=== PATIENT | female | born 1970 | race Caucasian/White ===

== ENCOUNTER 2017-09-02 22:17 | Inpatient (IN) | payer BC ==
[~2017-09-02] VITALS: Ht 162.6 cm; Wt 70.0 kg
--- NOTE | ~2017-09-02 | HEMODYNAMI ---
PATIENT:IZZY CARTER MEDICAL RECORD: [id number] : [birth year] LOCATION:[facility] ADMISSION DATE: 09/02/17 Generatedon:09/02/201723:00 Patient name: IZZY CARTER Patient #: [id number] SSN: : 1970 Date of study: Page: Of Hemodynamic Procedure Report Patient Data Patient Demographics First Name: IZZY Gender: Female Last Name: EMMA : 1970 Patient #: [id number] Age: 47 year(s) Race: Unknown Additional ID: [id number] Contact details Address: UNKNOWN State: [place] City: [facility] Zip code: [address] Admission Admission Data Admission Date: 09/02/2017 Admission Time: 22:17 Admit Source: Emergency department Procedure Procedure Types Cath Procedure Diagnostic Procedure LHC LHC w/Coronaries Miscellaneous Procedures Moderate Sedation up to 15 minutes Procedure Description Procedure Staff Name Function Norberto Thompson MD Performing Physician Joanna Suresh RT Monitor Sherri Hayes RT Scrub Wang Qureshi RN Nurse Hemodynamics Rest Pre Cath Intra NCS Post Cath Procedure Log Time Note 22:52:27 Admit Source: Emergency department 22:52:37 Diagnostic Cath status Emergency 22:52:40 Wang Qureshi RN sent for patient. Start room use. 22:52:42 Time tracking: Regular hours 22:52:47 Plan of Care:Hemodynamics will remain stable., Cardiac rhythm will remain stable., Comfort level will be maintained., Respiratory function will remain adequate., Patient/ family verbilizes understanding of procedure., Procedure tolerated without complication., Recovers from procedure without complications.. 23:00:[address] Thompson Signature Audit [place] Stage Time Signature Unsigned Intra-Procedure 09/02/2017 Sherri Hayes 11:00:25 PM RT(R) Signatures Monitor : Joanna Suresh RT Signature : Date : Time : [address] [place] [address]
[2017-09-02 23:36] LABS: WBC 33.5 10x3/uL (4.8-10.8)
[2017-09-02 23:37] LABS: HEMATOCRIT 39.3 % (36.0-48.0); HEMOGLOBIN 12.5 g/dL (12-16); MCH 31.8 pg (26.0-34.0); MCHC 31.8 g/dL (31.0-37.0); MEAN PLATELET VOLUME 12.3 fL (7.4-10.4); PLATELET COUNT 300 10x3/uL (130-400); RBC 3.93 10x6/uL (4.00-5.40); RDW 12.2 % (11.5-14.5)
[2017-09-02 23:49] LABS: APTT 26.7 SECONDS (22.8-39.4); INR 1.18 (0.85-1.17); PROTIME 14.6 SECONDS (11.6-15.0)
[2017-09-03] VITALS (33 sets, daily range): BP systolic 95–144; BP diastolic 51–81; Ht 162.6 cm; Wt 70.0 kg
[2017-09-03 00:13] LABS: ALBUMIN 3.4 g/dL (3.4-5.0); ALKALINE PHOSPHATASE 98 U/L (46-116); ALT (SGPT) 39 U/L (10-68); BILIRUBIN - TOTAL 0.44 mg/dL (0.2-1.3); CALCIUM 8.6 mg/dL (8.5-10.1); CHLORIDE - SERUM 90 mmol/L (98-107); CKMB 1.3 U/L (0.0-3.6); CREATINE KINASE 87 UL (21-215); CREATININE - SERUM 2.8 mg/dL (0.6-1.3); POTASSIUM - SERUM 5.9 mmol/L (3.5-5.1); SODIUM 129 mmol/L (136-145); UREA NITROGEN 62 mg/dL (7-18); eGFR NON AFRICAN AMERICAN 19 mL/min (90-120)
[2017-09-03 00:16] LABS: CALC OSMOLALITY 316 mosm/kg (275-300)
[2017-09-03 00:17] LABS: TROPONIN-I 0.078 ng/mL (0.000-0.060)
[2017-09-03 00:18] LABS: CARBON DIOXIDE 8.1 mmol/L (21.0-32.0); GLUCOSE 813 mg/dL (74-106)
[2017-09-03 00:31] LABS: LYMPHOCYTES 14 % (15-50); MONOCYTES 1 % (2-11); NEUTROPHILS 85 % (40-80); PLATELET ESTIMATE NORMAL
[2017-09-03 01:19] LABS: APPEARANCE HAZY (CLEAR); BILIRUBIN NEGATIVE (NEGATIVE); COLOR YELLOW (YELLOW); GLUCOSE 1000 mg/dL (NEGATIVE); KETONE MODERATE mg/dL (NEGATIVE); NITRITE NEGATIVE (NEGATIVE); PROTEIN 1+ mg/dL (NEGATIVE); UROBILINOGEN NORMAL (NORMAL)
[2017-09-03 01:20] LABS: AMORPHOUS SEDIMENT <1+ /lpf (NONE SEEN); BACTERIA FEW /hpf (NONE SEEN); EPITHELIAL CELLS 0-5 /hpf (0-5); RED CELLS - URINE 0-5 /hpf (0-5); WHITE CELLS - URINE 0-5 /hpf (0-5)
[2017-09-03 01:23] LABS: UDS - AMPHET NEGATIVE QUAL (NEGATIVE); UDS - BARB NEGATIVE QUAL (NEGATIVE); UDS - BENZO NEGATIVE QUAL (NEGATIVE); UDS - COCAINE NEGATIVE QUAL (NEGATIVE); UDS - OPIATE NEGATIVE QUAL (NEGATIVE); UDS - PCP NEGATIVE QUAL (NEGATIVE); UDS - THC NEGATIVE QUAL (NEGATIVE)
--- NOTE | 2017-09-03 03:13 | NUR ---
REC'D TO 2300 VIA STRETCHER FROM ER. ICU MONITORS ESTABLISHED. PT OBTUNDED, RESPONDS BRIEFLY TO DEEP STIMULI BY WITHDRWING AND OPENING EYES ONLY. DOES VALERIE WEAKLY, NOT TO COMMAND.IVF AND INSULIN GTT INFUSING TO R HAND PIV, NO REDNESS OR SWELLING AT SITE - LAB RESULTS PENDING FROM ER. TEMP 94.5 AX - WARMED BLANKETS PROVIDED.
[2017-09-03] MEDS ORDERED: RESTORIL15 MG PO (03:27)
[2017-09-03] MEDS ORDERED: BAYER CHEWABLE81 MG PO (03:28)
[2017-09-03] MEDS ORDERED: PLAVIX75 MG PO (03:28)
[2017-09-03] MEDS ORDERED: PRAVACHOL20 MG PO (03:28)
[2017-09-03] MEDS ORDERED: LEVOXYL100 MCG PO (03:29)
[2017-09-03] MEDS ORDERED: HUMALOG 30100 UNITS/ SC (03:29)
[2017-09-03] MEDS ORDERED: LANTUS INSULIN10 ML SC (03:30)
[2017-09-03] MEDS ORDERED: K-TAB10 MEQ (03:30)
[2017-09-03] MEDS ORDERED: LASIX20 MG (03:30)
[2017-09-03 03:31] LABS: HEMOGLOBIN A1C 10.6 % (4.8-6.0)
[2017-09-03 03:33] LABS: CHLORIDE - SERUM 95 mmol/L (98-107); CKMB 3.3 U/L (0.0-3.6); CREATINE KINASE 119 UL (21-215); MAGNESIUM - SERUM 2.5 mg/dL (1.8-2.4); PHOSPHOROUS 8.1 mg/dL (2.5-4.9); SODIUM 134 mmol/L (136-145); UREA NITROGEN 62 mg/dL (7-18); eGFR NON AFRICAN AMERICAN 18 mL/min (90-120)
[2017-09-03 03:34] LABS: CALC OSMOLALITY 320 mosm/kg (275-300); CARBON DIOXIDE 14.6 mmol/L (21.0-32.0); POTASSIUM - SERUM 4.2 mmol/L (3.5-5.1); TROPONIN-I 0.154 ng/mL (0.000-0.060)
[2017-09-03 03:35] LABS: GLUCOSE 736 mg/dL (74-106)
--- NOTE | 2017-09-03 03:56 | NUR ---
DR. POLK AT FOR TRIALYSIS PLACEMENT. CONSENT SIGNED BY FAMILY.
--- NOTE | 2017-09-03 04:17 | NUR ---
UPDATE GIVEN TO DR. POLK, NEW ORDERS RECIEVED,
--- NOTE | 2017-09-03 04:32 | NUR ---
FAMILY AT BS, UPDATE GIVEN AND QUESTIONS ANSWERED. SEE ADMISSION ASSESSMENT AND HISTORY.
--- NOTE | 2017-09-03 05:00 | NUR ---
Sherly MONTEIRO RE: ABG RESULTS.
--- NOTE | 2017-09-03 05:52 | NUR ---
FAMILY AT , FSBS 591, INSULIN GTT TO 26.5 UN/HR PER PROTOCOL. AM LABS PENDING - WILL Sherly SEWELL REPAGED WITH NO RETURN CALL YET. VSS . NO SIGN OF DISTRESS.
--- NOTE | 2017-09-03 05:54 | NUR ---
FAMILY STATES " DR. BUTTS IN [place] IS HER PRIMARY - WILL NEED TO GET RECORDS", ALSO SISTERS REQUEST DR. POLK BLOWER INSTALLER HERE.
[2017-09-03 06:07] LABS: ANION GAP 24.2 mmol/L (8-16); CALCIUM 7.9 mg/dL (8.5-10.1); CARBON DIOXIDE 17.1 mmol/L (21.0-32.0); CREATININE - SERUM 2.8 mg/dL (0.6-1.3)
[2017-09-03 06:14] LABS: POTASSIUM - SERUM 3.3 mmol/L (3.5-5.1)
[2017-09-03 06:27] LABS: WBC 22.3 10x3/uL (4.8-10.8)
[2017-09-03 06:28] LABS: BASOPHILS 0 % (0-2); EOSINOPHILS 0 % (0-7); IMMATURE GRANULOCYTES 0.8 % (0-5); LYMPHOCYTES 4.6 % (15-50); MCH 31.5 pg (26.0-34.0); MCHC 33.3 g/dL (31.0-37.0); MCV 94.6 fL (80.0-100.0); MEAN PLATELET VOLUME 11.5 fL (7.4-10.4); MONOCYTES 3.9 % (2-11); NEUTROPHILS 90.7 % (40-80); PLATELET COUNT 232 10x3/uL (130-400); RBC 3.49 10x6/uL (4.00-5.40)
--- NOTE | 2017-09-03 06:34 | NUR ---
Sherly SEWELL NOTIFIED OF AM LABS, INSULIN GTT AND STATUS REPORT GIVEN. NEW ORDERS REC'D TO CONSULT PULMONARY AND RENAL PHYSICIANS.
--- NOTE | 2017-09-03 06:50 | NUR ---
DR. CHRISTEN MONTEIRO.
--- NOTE | 2017-09-03 07:03 | NUR ---
DR. VELÁSQUEZ NOTIFIED OF CONSULT, LABS AND STATUS REPORT GIVEN. NEW ORDER FOR KCL REPLACEMENT PROTOCOL.
--- NOTE | 2017-09-03 07:59 | NUR ---
DR LYNN HERE AND SHE SPOKE TO FAMILY AT BS. BS 504 MULTIPLIER USED, INSULTN GTT INCREASED TO 31.0
[2017-09-03 09:15] LABS: CALC OSMOLALITY 312 mosm/kg (275-300); CALCIUM 8.4 mg/dL (8.5-10.1); CARBON DIOXIDE 21.4 mmol/L (21.0-32.0); CHLORIDE - SERUM 104 mmol/L (98-107); CREATINE KINASE 420 UL (21-215); CREATININE - SERUM 2.4 mg/dL (0.6-1.3); MAGNESIUM - SERUM 1.9 mg/dL (1.8-2.4); POTASSIUM - SERUM 3.2 mmol/L (3.5-5.1); SODIUM 140 mmol/L (136-145); THYROID STIMULATING HORMONE 0.19 uIU/mL (0.36-3.74); TROPONIN-I 0.756 ng/mL (0.000-0.060); UREA NITROGEN 52 mg/dL (7-18); eGFR NON AFRICAN AMERICAN 23 mL/min (90-120)
[2017-09-03 09:16] LABS: GLUCOSE 467 mg/dL (74-106)
[2017-09-03 10:48] LABS: CREATININE - URINE 39.4 mg/dL (30-125); PROTEIN - URINE 40.2 mg/dL (0.0-11.9)
--- NOTE | 2017-09-03 10:49 | NUR ---
PT IS RESPONDING BETTER, FOLLOWING COMMAND, SQUEEZE THIS RNS FINGERS ON COMMAND. STILL OBTUNDED. CT ABD DONE.
--- NOTE | 2017-09-03 15:33 | NUR ---
FSBS 149. INSULIN GTT OFF, REPORTED TO DR LYNN AND REC'D ORDERS TO START SSI AND TO DC INSULIN GTT. OS LLE TAKEN OUT BY ER STAFF.
[2017-09-03 16:22] LABS: CALCIUM 7.8 mg/dL (8.5-10.1); CHLORIDE - SERUM 111 mmol/L (98-107); CKMB 26.7 U/L (0.0-3.6); MAGNESIUM - SERUM 1.8 mg/dL (1.8-2.4); POTASSIUM - SERUM 3.1 mmol/L (3.5-5.1); SODIUM 145 mmol/L (136-145); UREA NITROGEN 41 mg/dL (7-18)
[2017-09-03 16:23] LABS: CALC OSMOLALITY 298 mosm/kg (275-300); CREATINE KINASE 1049 UL (21-215); CREATININE - SERUM 1.7 mg/dL (0.6-1.3); GLUCOSE 93 mg/dL (74-106); eGFR NON AFRICAN AMERICAN 34 mL/min (90-120)
[2017-09-03 16:24] LABS: TROPONIN-I 1.822 ng/mL (0.000-0.060)
--- NOTE | 2017-09-03 16:40 | NUR ---
CALLED ELEVATED TROPONION TO DR JERRY, NONEW ORDERS AT PRESENT. CALLED ELEVATED CL AND BS [address]YNN, REC'D NEW ORDERS TO CHANGE NS TO D5NS
--- NOTE | 2017-09-03 19:10 | NUR ---
REPORT RECIEVED. ASSESSMENT COMPLETE PER FLOW SHEET. VSS DENIES NEEDS. WILL CONTINUE TO MONITOR
--- NOTE | 2017-09-03 20:50 | NUR ---
FAMILY AT BEDSIDE. GIVEN UPDATE.
[2017-09-03 21:46] LABS: CALCIUM 8.2 mg/dL (8.5-10.1); CARBON DIOXIDE 19.9 mmol/L (21.0-32.0); CREATININE - SERUM 1.6 mg/dL (0.6-1.3); MAGNESIUM - SERUM 1.8 mg/dL (1.8-2.4)
[2017-09-03 21:56] LABS: POTASSIUM - SERUM 4.9 mmol/L (3.5-5.1)
--- NOTE | 2017-09-03 23:39 | NUR ---
REASSESSMENT COMPLETEPER FLOW SHEET. VSS NO NEW CHANGES WILL CONTINUE TO MONTIOR
[2017-09-04] VITALS (22 sets, daily range): BP systolic 137–180; BP diastolic 63–98
--- NOTE | 2017-09-04 01:01 | NUR ---
PT SLEPEING COMFORTABLY WILL CONTINUE TO MONITOR
--- NOTE | 2017-09-04 03:27 | NUR ---
REASSESSMENT COMPLETE PER FLOW SHEET. VSS NO NEW CHANGES WILL CONTINUE TO MONITOR
[2017-09-04 05:11] LABS: CKMB 17.4 U/L (0.0-3.6); CREATINE KINASE 1252 UL (21-215); PHOSPHOROUS 1.9 mg/dL (2.5-4.9); TROPONIN-I 2.055 ng/mL (0.000-0.060)
[2017-09-04 05:14] LABS: ERYTHROCYTE SEDIMENTATION RATE 26 mm/hr (0-20)
[2017-09-04 07:02] LABS: ALBUMIN 2.9 g/dL (3.4-5.0); ANION GAP 16.6 mmol/L (8-16); BILIRUBIN - TOTAL 0.26 mg/dL (0.2-1.3); CALCIUM 8.6 mg/dL (8.5-10.1); CARBON DIOXIDE 22.6 mmol/L (21.0-32.0); CREATININE - SERUM 1.4 mg/dL (0.6-1.3); POTASSIUM - SERUM 4.2 mmol/L (3.5-5.1)
--- NOTE | 2017-09-04 08:39 | NUR ---
AWAKES EASILY TO VERBAL STIMULI SKIN WARM AND DRY. RIJ DRESSING DRY AND INTACT D5NS AT 100 ML HOUR. DOES C/O ABD TENDERNESS ON PALPATATION. STATES HER BACK IS HURTING HER FROM LAYING IN THE BED TOO LONG. OFFERED TO GET HER UP IN CHAIR AT BEDSIDE, REFUSED. REPOSITIONED ON LEFT SIDE FOR COMFORT. NOT WANTING TO MOVE HER SELF IN BED. NEEDS ENCOURAGEMENT. SISTERS AT BEDSIDE QUESTIONS ANSWERED. ABD SOFT WITH BOWEL SOUNDS PRESENTS. DENIES ANY NAUSEA. INSULIN GTT TURNED OFF.
--- NOTE | 2017-09-04 11:42 | NUR ---
DR CHRISTEN VALDOVINOS FOR PATIENT TO TRANSFER TO FLOOR
[2017-09-04 13:22] LABS: BASOPHILS 0 % (0-2); EOSINOPHILS 0 % (0-7); HEMATOCRIT 30.9 % (36.0-48.0); HEMOGLOBIN 10.6 g/dL (12-16); IMMATURE GRANULOCYTES 0.3 % (0-5); LYMPHOCYTES 4.6 % (15-50); MCH 32.1 pg (26.0-34.0); MCHC 34.3 g/dL (31.0-37.0); MCV 93.6 fL (80.0-100.0); MEAN PLATELET VOLUME 11.1 fL (7.4-10.4); MONOCYTES 4.4 % (2-11); NEUTROPHILS 90.7 % (40-80); PLATELET COUNT 161 10x3/uL (130-400); RDW 12.5 % (11.5-14.5); WBC 23.8 10x3/uL (4.8-10.8)
[2017-09-04] MEDS ORDERED: K-DUR20 MEQ PO (13:39)
[2017-09-04] MEDS ORDERED: NORMODYNE / TR200 MG PO (13:39)
[2017-09-04] MEDS ORDERED: COZAAR50 MG PO (13:40)
[2017-09-04] MEDS ORDERED: LOZOL 2.5 MG T2.5 MG PO (13:42)
[2017-09-04] MEDS ORDERED: TIROSINT88 MCG PO (13:43)
[2017-09-04] MEDS ORDERED: LASIX40 MG (13:48)
--- NOTE | 2017-09-04 13:48 | NUR ---
[facility] IN [place] CALLED [phone] AND UPDATED MED LIST RECEIVED. STATES PATIENT REFILLED MEDS ON Saturday09/02/17
--- NOTE | 2017-09-04 17:54 | NUR ---
UP IN CHAIR STOOD AND WALKED WITH MINIMAL ASSISTANCES. MORE ALERT THIS AFTERNOON. POOR APPETITE FEW SIPS OF CHICKEN BROTH AND PUDDING. DRINKING PLENTY OF FLUIDS. NAPPING AT INTERVALS. NS INFUSING AT 50 ML HOUR PER RIGHT IJ TRIALYSIS NO DRAINAGE OR REDNESS AT SITE. JARAMILLO CATH PATENT DRAINING CLEAR YELLOW URINE. MONITOR SR. DOES HAVE SOME CHEST PAIN FROM HAVING CPR DONE AND SOME BACK DISCOMFORT TURNING SELF FROM SIDE TO SIDE. FAMILY HERE QUESTIONS ANSWERED
--- NOTE | 2017-09-04 19:29 | NUR ---
REPORT RECIEVED. ASSESSMENT COMPLETE PER FLOW SHEET. VSS. BS 119 NO INSULIN PER PROTOCOL. DENIES NEEDS WILL CONTINUE TO MONITOR
--- NOTE | 2017-09-04 23:30 | NUR ---
REASSESSMENT COMPLETE PER FLOW SHEET. VSS. NO NEW CHANGES WILL CONTINUE TO MONITOR
[2017-09-05] VITALS (15 sets, daily range): BP systolic 126–167; BP diastolic 65–100
--- NOTE | 2017-09-05 01:10 | NUR ---
PT SLEEPING COMFORTABLY. VSS NO NEW CHANGES WILL CONTINUE TO MONITOR
--- NOTE | 2017-09-05 05:20 | NUR ---
FAMILY AT BEDSIDE. GIVEN UDPATE. NO NEW CHANGES
[2017-09-05 06:09] LABS: % SATURATION 37 % (15-55); IRON 70 ug/dl (35-150); TOTAL IRON BIND CAPACITY 186 ug/dl (260-445); UNSAT IRON BIND CAPACITY 116 ug/dl (150-375)
[2017-09-05 06:13] LABS: BASOPHILS 0.1 % (0-2); EOSINOPHILS 0.2 % (0-7); HEMOGLOBIN 9.9 g/dL (12-16); IMMATURE GRANULOCYTES 0.3 % (0-5); MCH 31.9 pg (26.0-34.0); MCHC 34.1 g/dL (31.0-37.0); MCV 93.5 fL (80.0-100.0); MEAN PLATELET VOLUME 11.5 fL (7.4-10.4); MONOCYTES 5.3 % (2-11); NEUTROPHILS 82.1 % (40-80); PLATELET COUNT 138 10x3/uL (130-400); RDW 12.4 % (11.5-14.5)
--- NOTE | 2017-09-05 06:20 | NUR ---
[facility] PAGED PT BP 165/95 WILL CONTINUE TO MONITOR
[2017-09-05 06:29] LABS: ALBUMIN 2.6 g/dL (3.4-5.0); BILIRUBIN - TOTAL 0.68 mg/dL (0.2-1.3); CALCIUM 7.9 mg/dL (8.5-10.1); CARBON DIOXIDE 25.3 mmol/L (21.0-32.0); PROTEIN - SERUM 5.8 g/dL (6.4-8.2)
[2017-09-05 06:37] LABS: ANION GAP 16.1 mmol/L (8-16); CREATININE - SERUM 0.9 mg/dL (0.6-1.3); POTASSIUM - SERUM 3.4 mmol/L (3.5-5.1)
--- NOTE | 2017-09-05 07:23 | NUR ---
Nutrition follow-up: Pt receiving clear liquids; to advance to consistent CHO as pt can tolerate Labs reviewed Wt: 154# +BM RDN will monitor patients diet advancement, diet tolerance and pts progress.
--- NOTE | 2017-09-05 10:03 | NUR ---
PT OOB TO CHAIR THIS AM. VSS. AFEBRILE.
--- NOTE | 2017-09-05 11:15 | NUR ---
DR LYNN HERE, BP ELEVATED, VASOTED GIVEN.
[2017-09-05 12:05] LABS: MAGNESIUM - SERUM 1.6 mg/dL (1.8-2.4)
[2017-09-05 12:08] LABS: PHOSPHOROUS 2.6 mg/dL (2.5-4.9)
--- NOTE | 2017-09-05 19:07 | NUR ---
REPORT MONROE TO NURSING STAFF ON MED SURG. WILL TRANSFER TO ROOM 2215.
--- NOTE | 2017-09-05 19:30 | NUR ---
RECEIVED TO FLOOR FROM ICU, ORIENTED TO ROOM, NO DISTRESS NOTED, CLINT PATINO PER DR LYNN'S ORDER, UP TO BATHROOM AND SINK TO BRUSH TEETH, DENIES NEEDS, WILL CONTINUE TO MONITOR
[2017-09-06 04:00] VITALS: BP 147/86
--- NOTE | 2017-09-06 04:15 | NUR ---
BLOOD GLUCOSE 39, RECHECKED 36, AMP D50 GIVEN PER PROTOCOL, PT STATES SHE FEELS FINE, JUST REALLY TIRED, WILL RECHECK IN 30 MIN
--- NOTE | 2017-09-06 04:30 | NUR ---
PT FSBS CRITICAL LOW 36. TYPE ROLLING MACHINE OPERATOR ADMINISTERING D5O IV PUSH. PT IS ASYMPTOMATIC. NO DISTRESS NOTED. TYPE ROLLING MACHINE OPERATOR MONITORING CLOSELY. CONTINUE TYPE ROLLING MACHINE OPERATOR'S PLAN OF CARE.
--- NOTE | 2017-09-06 05:00 | NUR ---
BLOOD GLUCOSE CAME UP TO 136, PT STATES SHE FEELING BETTER
[2017-09-06 06:19] LABS: BASOPHILS 0.1 % (0-2); EOSINOPHILS 4.7 % (0-7); HEMATOCRIT 31.6 % (36.0-48.0); HEMOGLOBIN 10.7 g/dL (12-16); IMMATURE GRANULOCYTES 0.2 % (0-5); LYMPHOCYTES 14.9 % (15-50); MCH 31.8 pg (26.0-34.0); MCHC 33.9 g/dL (31.0-37.0); MCV 93.8 fL (80.0-100.0); MEAN PLATELET VOLUME 10.9 fL (7.4-10.4); MONOCYTES 8.5 % (2-11); NEUTROPHILS 71.6 % (40-80); PLATELET COUNT 126 10x3/uL (130-400); RBC 3.37 10x6/uL (4.00-5.40); RDW 11.8 % (11.5-14.5)
[2017-09-06 06:20] LABS: WBC 9.1 10x3/uL (4.8-10.8)
[2017-09-06 06:32] LABS: ALBUMIN 2.6 g/dL (3.4-5.0); BILIRUBIN - TOTAL 0.47 mg/dL (0.2-1.3); CALCIUM 8.2 mg/dL (8.5-10.1); POTASSIUM - SERUM 3.1 mmol/L (3.5-5.1)
[2017-09-06 06:34] LABS: ANION GAP 9.7 mmol/L (8-16); CARBON DIOXIDE 33.4 mmol/L (21.0-32.0)
--- NOTE | 2017-09-06 07:20 | NUR ---
REPORT RECEIVED FROM MOTOR POWER CONNECTOR NURSE. CALL LIGHT IN REACH.
[2017-09-06 08:10] VITALS: BP 149/78; BP 154/77
[2017-09-06 09:17] LABS: SPE - A/G RATIO 1.2 (0.7-1.7); SPE - ALBUMIN 2.7 g/dL (2.9-4.4); SPE - ALPHA-1 GLOBULIN 0.2 g/dL (0.0-0.4); SPE - ALPHA-2 GLOBULIN 0.7 g/dL (0.4-1.0); SPE - BETA GLOBULIN 0.6 g/dL (0.7-1.3); SPE - GAMMA GLOBULIN 0.7 g/dL (0.4-1.8); SPE - M-SPIKE Not Observed g/dL (Not Observed)
--- NOTE | 2017-09-06 09:30 | NUR ---
ASSESSMENT COMPLETED. CALL LIGHT IN REACH. WILL CONTINUE WITH PLAN OF CARE.
--- NOTE | 2017-09-06 10:22 | NUR ---
AM MEDS ADMINISTERED. FSBS 233. 12 UNITS REGULAR INSULIN SUBQ TO LLQ. CALL LIGHT IN REACH. WILL CONTINUE WITH PLAN OF CARE.
--- NOTE | 2017-09-06 10:26 | NUR ---
AFTER TYPING A NOTE, I TURNED AROUND AND PATIENT STATED THAT SHE PUSHED THE ABX THRU HERSELF. EXPLAINED TO HER THAT SHE CANNOT DO THAT AND IT HAS TO BE PUSHED OVER A CERTAIN AMOUNT OF TIME AND SHE SHOULD NEVER PUSH ANYTHING AND SHOULD ALLOW THE NURSE TO. VERBALIZED UNDERSTANDING.
--- NOTE | 2017-09-06 12:50 | NUR ---
EATING LUNCH AT THIS TIME. NO NEEDS VOICED AT THIS TIME. FAMILY MEMBER IN ROOM.
--- NOTE | 2017-09-06 13:13 | NUR ---
Patient Name: IZZY CARTER Admission Status: ER Accout number: [id number] Admission Date: 09-03-2017 : 1970 Admission Diagnosis: Attending: KYLIE LYNN Current LOS: 3 Anticipated DC Date: 09-06-2017 Planned Disposition: Home Primary Insurance: [employer] Discharge Planning Comments: CM MET WITH PATIENT REGARDING D/C NEEDS AND PLANS. PATIENT STATED SHE LIVES WITH HER BOYFRIEND AND THEY HAVE ABOUT 5 STEPS W/RAILS TO ENTER HOME AND NO STAIRS INSIDE. PATIENTS FRIEND (TIGIST) OR BOYFRIEND WILL DRIVE HER HOME AT DISCHARGE. PATIENT STATED SHE IS INDEPENDENT WITH HER CARE AND HAS A GLUCOMETER AT HOME. PATIENT STATED SHE NEVER CHECKS HER BLOOD SUGARS BUT WILL START. CM ASKED IF HOME HEALTH COULD SEE HER FOR DIABETES TEACHING. PATIENT STATED SHE DID NOT NEED HOME HEALTH. PATIENTS PCP IS DR. EDWARDS AND USES [facility] [place]. CM WILL CONTINUE TO FOLLOW PATIENT WITH D/C NEEDS AND PLANS. PCP DR. JERRY [facility] [phone] TIGIST (FRIEND) [phone] Loom Inspector: Dariela Holloway Is the patient Alert and Oriented? Yes 0 * PCP DR. EDWARDS 0 * Pharmacy [facility] IN [place] 0 * Preadmission Environment Home with Family 0 * ADLs Independent 0 * Equipment Glucometer 0 * List name and contact numbers for known caregivers / representatives who currently or will assist patient after discharge: TIGIST MAST (FRIEND) [phone] * Community resources currently utilized None 0 * Additional services required to return to the preadmission environment? Yes 0 * Can the patient safely return to the preadmission environment? Yes 0 * Has this patient been hospitalized within the prior 30 days at any hospital? No 0 Grand Total: 0
--- NOTE | 2017-09-06 14:50 | NUR ---
CALLED ICU NURSE TO SEE IF ONE OF THEM CAN TAKE OUT THE TRIALYSIS CATHETER.
--- NOTE | 2017-09-06 15:30 | NUR ---
TRIALYSIS CATHETER REMOVED ORDERED-3 SUTURES CUT-BETADINE OINT APPLIED TO SITE-PT INSTRUCTED TO TAKE DEEP BREATH AND HOLD-CATHETER REMOVED INTACT-PT RELEASED BREATH -BREATHING NORMALLY-PRESSURE APPLIED FOR 7MIN-HEMOSTASIS OBTAINED-GAUZE AND OPSITE APPLIED-DIRECTED TO REMOVE IN 24H AT HOME-PROVIDED WITH 2 SMALL PACKET BETADINE OINT-DIRECTED IF NOT HEALED OVER-APPLY BETADINE OINT AND GAUZE DRG-REPEAT Q 24H NECESSARY-[place]
--- NOTE | 2017-09-06 16:20 | NUR ---
IV TO RIGHT HAND DC'D WITH TIP INTACT.
--- NOTE | 2017-09-06 17:12 | NUR ---
DC INSTRUCTIONS EXPLAINED TO PATIENT. DC'D TO VEHICLE. REFUSED WC.
--- NOTE | 2017-09-10 12:15 | CN ---
PATIENT NAME:IZZY CARTER MEDICAL RECORD: [id number] : [birth year] LOCATION:[facility] ADMIT DATE: 09/03/17 ACCOUNT: [id number] CONSULTING PHYSICIAN: JAMAL JERRY MD REFERRING PHYSICIAN: KYLIE LYNN MD DATE OF CONSULTATION: 09/02/2017 DIAGNOSES: 1. Diabetic ketoacidosis. 2. Acidosis. 3. Type 1 diabetes. 4. Abnormal ECG. HISTORY OF PRESENT ILLNESS: Mrs. Carter'david details of what went on at the house are very questionable and very sketchy. Supposedly the patient got into some sort of distress. EMS was called, people that were armed met EMS. The EMS did not go into the house, they were waiting for police. The patient finally arrested in the house. The details of the arrest are actually very incomplete as well, supposedly no medications were given. She was at one time in asystole, possibly in PEA. CPR was performed. The patient then pulled out of it, was breathing on her own. She is unresponsive here. Initially her EKG looked like an acute anterior myocardial infarction with treatment of the acidosis; however, the EKG is with narrow complex and no further ST elevation. Currently, she is on no pressors. She is sinus tachycardia at 113. Systolic blood pressure greater than 100. PHYSICAL EXAMINATION: GENERAL APPEARANCE: Well-nourished, well-developed, appears stated age. Level of distress, comfortable. PSYCHIATRIC: Mental status, alert, normal affect. Orientation, oriented to time, place and person. EYES: Lids and conjunctiva, noninjected. No discharge, no pallor. ENT: Lips, teeth, gums, normal dentition. Oropharynx, no cyanosis, no pallor. NECK: Carotid arteries, bilateral normal upstroke, no bruits, no thrills. JUGULAR VEINS: No jugular venous pressure or distention. CERVICAL LYMPH NODES: Nontender, nonenlarged. THYROID: Not enlarged. Nontender. No nodules. LUNGS: Respiratory effort, unlabored. CHEST: Normal curvature. No thoracic deformity. No chest wall tenderness. Percussion, resonant. Auscultation, clear. No wheezes, no rales, no rhonchi. CARDIOVASCULAR: Precordial exam, nondisplaced. No heaves or pericardial thrills. Rate and rhythm, regular. Heart sounds, normal S1, normal S2. No S3, no gallop, no rub. Systolic murmur, not heard. Diastolic murmur, not heard. EXTREMITIES: No cyanosis, no edema. Peripheral pulses, full and equal in all extremities, except as noted. No bruits appreciated. ABDOMEN: Soft, nondistended. Normal aorta. No bruit. Nontender. No masses. Liver, nontender, no hepatomegaly. Spleen, nontender, no splenomegaly. MUSCULOSKELETAL: No joint tenderness. No joint swelling. No erythema. NEUROLOGICAL: Normal gait, normal strength, normal tone. SKIN: Warm and dry. OVERALL IMPRESSION: EKG abnormalities secondary to electrolyte abnormalities as well as acidosis. She is not having an acute anterior myocardial infarction, no acute cardiac workup needs to be ascertained. CONSULT REPORT [id number] IZZY CARTER TRANSINT:[id number] Voice Confirmation ID: [id number] DOCUMENT ID: [id number] JAMAL JERRY MD at 1215 CC: [id number] DICTATION DATE: 09/02/172256 MELTER SUPERVISOR OXYGEN FURNACE: 09/03/17 0204 DIS IN 09/06/17 [address] [place] [address]
--- NOTE | 2017-10-23 11:58 | DS ---
PATIENT:IZZY CARTER :[birth year] MEDICAL RECORD: [id number] DISCHARGE SUMMARY ADMISSION DATE: 09/03/17 DISCHARGE DATE: 09/06/17 ADMIT DATE: 09/03/2017 DISCHARGE DATE: 09/06/2017 DISCHARGE DIAGNOSES: 1. Diabetic ketoacidosis. 2. Lactic acidosis. 3. Acute renal failure. 4. Elevated troponin. 5. Pseudohyponatremia. 6. Hyperkalemia. CONSULTATIONS: 1. Norberto Thompson MD 2. Nephrology. 3. David Ramirez MD 4. Surgery, Edilberto Avitia MD IMAGING STUDIES: 1. CT of the head, which shows no acute intracranial hemorrhage and an old infarct in the right occipital lobe. 2. Right IJ. 3. CVL. 4. A CT of the abdomen and pelvis, which showed no acute findings. HOSPITAL COURSE: The full H&P is listed elsewhere on the chart for this 47-year-old female patient, who presented with DKA and altered mental status along with electrolyte abnormalities and metabolic acidosis. She was admitted into the ICU. She had hyperkalemia as well. Her electrolytes were corrected with IV fluids and diabetes was managed with an insulin drip. Several consultants were consulted. The patient was unresponsive and had asystole upon arriving in to the Emergency Room. She was successfully resuscitated and taken into the intensive care unit. Dr. Ramirez helped with respiratory support. She was placed on some IV antibiotic therapy. Her electrolytes did improve. Her renal status improved with aggressive IV hydration and correction of her lytes. Her troponin was markedly elevated, but it was thought to be due to the hyperkalemia and the severe metabolic acidosis. She did not have an acute myocardial infarction and cardiology recommendations were to correct her electrolytes. Her mentation did improve as her acidosis improved. She stabilized and was thought to be stable to discharge to home in the outpatient setting. DISCHARGE MEDICATIONS: See med rec. TRANSINT:[id number] Voice Confirmation ID: [id number] DOCUMENT ID: [id number] Dictated By: ANIKA HOLLOWAY I have interviewed/examined the above patient and agree with these documented findings. DISCHARGE SUMMARY REPORT [id number] IZZY CARTER at 1114 at 1158 CC: [id number] DICTATION DATE: 10/18/17 0841 INBOUND CALL CENTER REPRESENTATIVE: 10/19/17 0017 DIS IN 09/06/17 [facility] [address] [id number]
== END 2017-09-06 17:12 | disposition home or self-care (01) | DRG 637 ==
LOC: D.ER 22:17 → EDBD 22:17 → D.ICU 09-03 02:35 → D.MS 09-03 02:35
PROVIDERS: Family Medicine; Internal Medicine; Internal Medicine Pulmonary Disease; Surgery; ADMIT Family Medicine
DX: E10.10 Type 1 diabetes mellitus with ketoacidosis without coma (principal); G93.41 Metabolic encephalopathy; N17.0 Acute kidney failure with tubular necrosis; M62.82 Rhabdomyolysis; E87.2 Acidosis; Z79.4 Long term (current) use of insulin; E83.39 Other disorders of phosphorus metabolism; E03.9 Hypothyroidism, unspecified; E83.51 Hypocalcemia; E87.5 Hyperkalemia; E83.42 Hypomagnesemia; D72.829 Elevated white blood cell count, unspecified